=== PATIENT | male | born 1960 | race Caucasian/White ===

== ENCOUNTER → 2017-02-13 | Outpatient (CLI) | payer BC ==
[2017-02-13 09:42] LABS: CLARITY URINE CLEAR (CLEAR); COLOR URINE YELLOW (YELLOW); GLUCOSE URINE NEGATIVE (NEGATIVE); KETONES URINE NEGATIVE (NEGATIVE); LEUKOCYTE ESTERASE URINE NEGATIVE (NEGATIVE); NITRITE URINE NEGATIVE (NEGATIVE); OCCULT BLOOD URINE NEGATIVE (NEGATIVE); PROTEIN URINE NEGATIVE (NEGATIVE); SPECIFIC GRAVITY URINE 1.029 (1.005-1.030); UROBILINOGEN URINE 0.2 E.U./dL (0.2-1.0)
[2017-02-13 10:22] LABS: CARBON DIOXIDE 27 mEq/L (21-32); CHLORIDE 108 mEq/L (98-107); HDL CHOLESTEROL 31 mg/dL (40-59); LDL CHOLESTEROL 85 mg/dL (5-100)
[2017-02-16 13:12] LABS: *CREATININE RANDOM URINE 258.5 mg/dL (Not Estab.); MICROALBUMIN RANDOM URINE 23.8 ug/mL (Not Estab.)
== END | disposition home or self-care (01) ==
LOC: LAB 09:03
PROVIDERS: ATTEND Internal Medicine
DX: E11.9 Type 2 diabetes mellitus without complications (principal); E55.9 Vitamin D deficiency, unspecified; E78.00 Pure hypercholesterolemia, unspecified
CPT/HCPCS: 36415; 80053; 80061; 81003; 82043; 82306; 82570; 83036

== ENCOUNTER 2017-05-23 20:49 | Inpatient (IN) | payer BC ==
[~2017-05-23] VITALS: Ht 188 cm; Wt 94.8 kg
[2017-05-23] MEDS ORDERED: ONDANSETRON HCL 4MG/2ML VIAL IV STA (21:59)
[2017-05-23] MEDS ORDERED: SODIUM CHLORIDE 0.9% 1,000 ML IV ONE (21:59)
[2017-05-23] MEDS ORDERED: CEFTRIAXONE 1 G PREMIX 50 ML IV ONE (23:15)
[2017-05-23] MEDS ORDERED: AZITHROMYCIN 500 MG in DEXT 5% WATER 250 ML IV SCH (23:15)
[2017-05-23 23:23] LABS: BASOPHILS % 0.1 % (0.0-2.0); HEMATOCRIT. 48.8 % (42.0-52.0); HEMOGLOBIN. 16.4 g/dL (14.0-18.0); MEAN CORPUSCULAR HEMOGLOBIN 29.8 pg (28.0-32.0); MEAN CORPUSCULAR VOLUME 88.5 fL (80.0-94.0); MEAN PLATELET VOLUME 9.9 fl (7.4-10.4); MONOCYTES % 8.9 % (2.0-8.0); PLATELET 104 x1000/uL (130-400); RED BLOOD CELL COUNT 5.51 mill/uL (4.7-6.1); RED CELL DISTRIBUTION WIDTH 13.1 % (11.6-14.6)
[2017-05-23 23:26] LABS: PROTHROMBIN TIME 10.7 sec (9.4-11.6)
[2017-05-23 23:29] LABS: CLARITY URINE CLEAR (CLEAR); COLOR URINE DARK YELLOW (YELLOW); KETONES URINE 2+ (NEGATIVE); LEUKOCYTE ESTERASE URINE NEGATIVE (NEGATIVE); NITRITE URINE NEGATIVE (NEGATIVE); OCCULT BLOOD URINE NEGATIVE (NEGATIVE); PROTEIN URINE 2+ (NEGATIVE); SPECIFIC GRAVITY URINE 1.037 (1.005-1.030)
[2017-05-23] MEDS ORDERED: BENZONATATE 100MG CAPSULE PO ONE (23:30)
[2017-05-23 23:38] LABS: CARBON DIOXIDE 26 mEq/L (21-32); CHLORIDE 100 mEq/L (98-107); TROPONIN I < 0.02 ng/mL (0.00-0.04)
[2017-05-24] MEDS ORDERED: METF500T4 PO (01:20)
[2017-05-24] MEDS ORDERED: ATOR10TA69 PO (01:20)
[2017-05-24] MEDS ORDERED: GLIP5TAB12 PO (01:20)
[2017-05-24 01:30] VITALS: BP 115/58
[2017-05-24] MEDS ORDERED: DEXTROSE 50% WATER 50ML SYRINGE IV PRN (01:30)
[2017-05-24] MEDS ORDERED: TEMAZEPAM 15MG CAPSULE PO PRN (01:30)
[2017-05-24] MEDS ORDERED: ACETAMINOPHEN 325MG TABLET PO PRN (01:30)
[2017-05-24] MEDS ORDERED: ONDANSETRON HCL 4MG/2ML VIAL IV PRN (01:30)
[2017-05-24] MEDS ORDERED: CLONIDINE 0.1MG TABLET PO PRN (01:30)
[2017-05-24] MEDS ORDERED: HYDROCODONE/ACETAMINOPHEN 5/325MG TABLET PO PRN (01:30)
[2017-05-24] MEDS ORDERED: IPRATROPIUM/ALBUTEROL 0.5-3(2.5)MG/3ML NEB INH PRN (01:30)
[2017-05-24] MEDS ORDERED: DIPHENHYDRAMINE 50MG/ML VIAL IV PRN (01:30)
[2017-05-24] MEDS ORDERED: LOPERAMIDE HCL 2MG CAPSULE PO PRN (01:30)
[2017-05-24] MEDS: PROMETHAZINE/DEXTROMETHORPHAN 6.25-15MG/5ML BOTTLE 120ML PO PRN ×2 (02:32→11:48)
[2017-05-24] MEDS: SODIUM CHLORIDE 0.9% 1,000 ML IV SCH ×2 (02:34→11:33)
[2017-05-24 04:00] VITALS: BP 104/62
[2017-05-24] MEDS ORDERED: LEVOFLOXACIN 500MG PREMIX 100 ML IV SCH (04:00)
[2017-05-24] MEDS ORDERED: IPRATROPIUM/ALBUTEROL 0.5-3(2.5)MG/3ML NEB HHN SCH (06:00)
[2017-05-24] MEDS: BLOOD SUGAR DIAGNOSTIC STRIP TEST SCH ×3 (06:06→17:24)
[2017-05-24] MEDS: INSULIN LISPRO 100 UNITS/ML SUBCUT SCH ×3 (07:13→17:24)
[2017-05-24 08:00] VITALS: BP 113/66
[2017-05-24] MEDS: METFORMIN HCL 500MG TABLET PO SCH ×2 (08:51→17:30)
[2017-05-24] MEDS ORDERED: OSELTAMIVIR 75MG CAPSULE PO SCH (09:00)
[2017-05-24 12:00] VITALS: BP 111/65
[2017-05-24 16:00] VITALS: BP 103/67
[2017-05-24 16:25] VITALS: BP 103/67
[2017-05-24] MEDS ORDERED: ATORVASTATIN CALCIUM 10MG TABLET PO SCH (21:00)
== END 2017-05-24 18:30 | disposition home or self-care (01) | DRG 195 ==
LOC: ER 21:15 → EDBEDREQTM 23:51 → EDBEDREQ 23:51 → 7WST 23:51 → ENRESERV 23:52
PROVIDERS: ADMIT Internal Medicine; ATTEND Internal Medicine
DX: J18.9 Pneumonia, unspecified organism (principal); E11.9 Type 2 diabetes mellitus without complications; E78.00 Pure hypercholesterolemia, unspecified; F17.200 Nicotine dependence, unspecified, uncomplicated; Z83.3 Family history of diabetes mellitus; Z79.84 Long term (current) use of oral hypoglycemic drugs; Z79.899 Other long term (current) drug therapy
CPT/HCPCS: 36415; 80053; 81001; 82962; 83036; 83605; 83690; 83880; 84484; 85025; 85610; 87040; 87086; 87804; 93005; 96365; 96367; 96375; 99285; J0456; J0696; J1956; J2405; J7030; J7060; J7620

== ENCOUNTER → 2017-07-22 | Outpatient (CLI) | payer BC ==
[~2017-07-22] MED LIST: ATOR10TA69 PO; GLIP5TAB12 PO; METF500T4 PO
[2017-07-22 09:41] LABS: CHLORIDE 108 mEq/L (98-107)
[2017-07-22 09:45] LABS: HDL CHOLESTEROL 37 mg/dL (40-59); LDL CHOLESTEROL 96 mg/dL (5-100)
[2017-07-22 09:47] LABS: CLARITY URINE CLEAR (CLEAR); COLOR URINE YELLOW (YELLOW); KETONES URINE NEGATIVE (NEGATIVE); LEUKOCYTE ESTERASE URINE NEGATIVE (NEGATIVE); NITRITE URINE NEGATIVE (NEGATIVE); OCCULT BLOOD URINE NEGATIVE (NEGATIVE); PROTEIN URINE NEGATIVE (NEGATIVE); SPECIFIC GRAVITY URINE 1.026 (1.005-1.030); UROBILINOGEN URINE 0.2 E.U./dL (0.2-1.0)
[2017-07-26 19:07] LABS: *CREATININE RANDOM URINE 151.4 mg/dL (Not Estab.); MICROALBUMIN RANDOM URINE 9.3 ug/mL (Not Estab.)
== END | disposition home or self-care (01) ==
LOC: LAB 08:53
PROVIDERS: ATTEND Internal Medicine
DX: E11.9 Type 2 diabetes mellitus without complications (principal); E55.9 Vitamin D deficiency, unspecified; E78.5 Hyperlipidemia, unspecified
CPT/HCPCS: 36415; 80053; 80061; 81003; 82043; 82306; 82570

== ENCOUNTER → 2017-12-30 | Outpatient (CLI) | payer BC ==
[~2017-12-30] MED LIST changes: -METF500T4 PO; +METF500T6 PO
[2017-12-30 08:28] LABS: CHLORIDE 109 mEq/L (98-107)
[2017-12-30 08:36] LABS: LDL CHOLESTEROL 101 mg/dL (5-100)
[2017-12-30 08:38] LABS: HDL CHOLESTEROL 35 mg/dL (40-59)
== END | disposition home or self-care (01) ==
LOC: LAB 07:49
PROVIDERS: ATTEND Internal Medicine
DX: E11.9 Type 2 diabetes mellitus without complications (principal); E78.5 Hyperlipidemia, unspecified; Z79.899 Other long term (current) drug therapy
CPT/HCPCS: 36415; 80053; 80061; 83036

== ENCOUNTER → 2018-08-22 | Outpatient (CLI) | payer BC ==
[~2018-08-22] MED LIST changes: +METF-414 PO; -METF500T6 PO
[2018-08-22 09:54] LABS: CHLORIDE 107 mEq/L (98-107)
[2018-08-22 10:08] LABS: LDL CHOLESTEROL 90 mg/dL (5-100)
[2018-08-22 10:09] LABS: HDL CHOLESTEROL 40 mg/dL (40-59)
[2018-08-23 10:11] LABS: *CREATININE RANDOM URINE 165.3 mg/dL (Not Estab.); MICROALBUMIN RANDOM URINE 10.5 ug/mL (Not Estab.)
== END | disposition home or self-care (01) ==
LOC: LAB 09:07
PROVIDERS: ATTEND Internal Medicine
DX: Z00.01 Encounter for general adult medical examination with abnormal findings (principal); E11.9 Type 2 diabetes mellitus without complications; E78.00 Pure hypercholesterolemia, unspecified
CPT/HCPCS: 36415; 80061; 82043; 82570; 83036; 84153; G0103

== ENCOUNTER → 2019-03-11 | Outpatient (CLI) | payer BC ==
[2019-03-11 08:45] LABS: CLARITY URINE CLEAR (CLEAR); COLOR URINE YELLOW (YELLOW); KETONES URINE NEGATIVE (NEGATIVE); LEUKOCYTE ESTERASE URINE NEGATIVE (NEGATIVE); NITRITE URINE NEGATIVE (NEGATIVE); OCCULT BLOOD URINE NEGATIVE (NEGATIVE); PH URINE 5.5 (4.5-8.0); PROTEIN URINE NEGATIVE (NEGATIVE); SPECIFIC GRAVITY URINE 1.023 (1.005-1.030); UROBILINOGEN URINE 0.2 E.U./dL (0.2-1.0)
[2019-03-11 08:54] LABS: BASOPHILS % 0.7 % (0.0-2.0); EOSINOPHILS % 3.4 % (0.0-5.0); HEMATOCRIT. 44.3 % (42.0-52.0); HEMOGLOBIN. 14.8 g/dL (14.0-18.0); LYMPHOCYTES % 32.8 % (20.0-50.0); MEAN CORPUSCULAR HEMOGLOBIN 30.5 pg (28.0-32.0); MEAN CORPUSCULAR VOLUME 91.7 fL (80.0-94.0); MEAN PLATELET VOLUME 9.9 fl (7.4-10.4); MONOCYTES % 8.8 % (2.0-8.0); NEUTROPHILS % 54.3 % (40.0-76.0); PLATELET 171 x1000/uL (130-400); RED BLOOD CELL COUNT 4.84 mill/uL (4.7-6.1); RED CELL DISTRIBUTION WIDTH 13.3 % (11.6-14.6)
[2019-03-11 08:56] LABS: CHLORIDE 109 mEq/L (98-107)
[2019-03-11 09:03] LABS: LDL CHOLESTEROL 85 mg/dL (5-100)
[2019-03-11 09:04] LABS: HDL CHOLESTEROL 35 mg/dL (40-59)
[2019-03-12 09:07] LABS: *CREATININE RANDOM URINE 131.8 mg/dL (Not Estab.); MICROALBUMIN RANDOM URINE 10.5 ug/mL (Not Estab.)
== END | disposition home or self-care (01) ==
LOC: LAB 07:44
PROVIDERS: ATTEND Internal Medicine
DX: E11.9 Type 2 diabetes mellitus without complications (principal); E78.5 Hyperlipidemia, unspecified
CPT/HCPCS: 36415; 80061; 81003; 82043; 82570; 83036; 84443

== ENCOUNTER → 2019-11-27 | Outpatient (CLI) | payer BC ==
[2019-11-27 10:25] LABS: CHLORIDE 107 mEq/L (98-107)
[2019-11-27 10:26] LABS: CLARITY URINE CLEAR (CLEAR); COLOR URINE DARK YELLOW (YELLOW); KETONES URINE TRACE (NEGATIVE); LEUKOCYTE ESTERASE URINE NEGATIVE (NEGATIVE); NITRITE URINE NEGATIVE (NEGATIVE); OCCULT BLOOD URINE NEGATIVE (NEGATIVE); PROTEIN URINE NEGATIVE (NEGATIVE); SPECIFIC GRAVITY URINE 1.031 (1.005-1.030)
[2019-11-27 10:33] LABS: HDL CHOLESTEROL 36 mg/dL (40-59)
[2019-11-27 10:34] LABS: LDL CHOLESTEROL 116 mg/dL (5-100)
[2019-11-28 08:07] LABS: *CREATININE RANDOM URINE 212.7 mg/dL (Not Estab.); MICROALBUMIN RANDOM URINE 19.9 ug/mL (Not Estab.)
== END | disposition home or self-care (01) ==
LOC: LAB 09:48
PROVIDERS: ATTEND Internal Medicine
DX: E11.9 Type 2 diabetes mellitus without complications (principal); E78.5 Hyperlipidemia, unspecified
CPT/HCPCS: 36415; 80053; 80061; 81003; 82043; 82570; 83036

== ENCOUNTER → 2020-04-15 | Outpatient (CLI) | payer BC ==
[2020-04-15 14:34] LABS: BASOPHILS % 0.6 % (0.0-2.0); EOSINOPHILS % 2.5 % (0.0-5.0); HEMATOCRIT. 43.3 % (42.0-52.0); HEMOGLOBIN. 14.6 g/dL (14.0-18.0); LYMPHOCYTES % 28.1 % (20.0-50.0); MEAN CORPUSCULAR HEMOGLOBIN 30.4 pg (28.0-32.0); MEAN PLATELET VOLUME 9.3 fl (7.4-10.4); MONOCYTES % 6.5 % (2.0-8.0); NEUTROPHILS % 62.3 % (40.0-76.0); PLATELET 204 x1000/uL (130-400); RED BLOOD CELL COUNT 4.81 mill/uL (4.7-6.1); RED CELL DISTRIBUTION WIDTH 13.4 % (11.6-14.6)
[2020-04-15 14:46] LABS: CHLORIDE 111 mEq/L (98-107)
[2020-04-15 14:54] LABS: LDL CHOLESTEROL 92 mg/dL (5-100)
[2020-04-15 14:55] LABS: HDL CHOLESTEROL 41 mg/dL (40-59)
[2020-04-15 19:31] LABS: CLARITY URINE CLEAR (CLEAR); COLOR URINE YELLOW (YELLOW); KETONES URINE NEGATIVE (NEGATIVE); LEUKOCYTE ESTERASE URINE NEGATIVE (NEGATIVE); NITRITE URINE NEGATIVE (NEGATIVE); OCCULT BLOOD URINE NEGATIVE (NEGATIVE); PROTEIN URINE NEGATIVE (NEGATIVE); SPECIFIC GRAVITY URINE 1.013 (1.005-1.030); UROBILINOGEN URINE 0.2 E.U./dL (0.2-1.0)
== END | disposition home or self-care (01) ==
LOC: MRI 13:36
PROVIDERS: ATTEND Internal Medicine
DX: M43.16 Spondylolisthesis, lumbar region (principal); M47.26 Other spondylosis with radiculopathy, lumbar region; M48.061 Spinal stenosis, lumbar region without neurogenic claudication; Z00.00 Encounter for general adult medical examination without abnormal findings
CPT/HCPCS: 36415; 72148; 80053; 80061; 81003; 83036; 84443; 85025

== ENCOUNTER → 2020-09-02 | Outpatient (CLI) | payer BC ==
[2020-09-02 09:35] LABS: BASOPHILS % 0.6 % (0.0-2.0); EOSINOPHILS % 2.5 % (0.0-5.0); HEMATOCRIT. 47.7 % (42.0-52.0); HEMOGLOBIN. 15.9 g/dL (14.0-18.0); MEAN CORPUSCULAR HEMOGLOBIN 29.9 pg (28.0-32.0); MEAN CORPUSCULAR VOLUME 89.6 fL (80.0-94.0); MEAN PLATELET VOLUME 9.2 fl (7.4-10.4); MONOCYTES % 6.1 % (2.0-8.0); NEUTROPHILS % 63.8 % (40.0-76.0); PLATELET 199 x1000/uL (130-400); RED BLOOD CELL COUNT 5.33 mill/uL (4.7-6.1); RED CELL DISTRIBUTION WIDTH 13.1 % (11.6-14.6)
[2020-09-02 09:42] LABS: CHLORIDE 108 mEq/L (98-107)
[2020-09-02 09:50] LABS: LDL CHOLESTEROL 119 mg/dL (5-100)
[2020-09-02 09:51] LABS: HDL CHOLESTEROL 43 mg/dL (40-59)
== END | disposition home or self-care (01) ==
LOC: LAB 09:12
PROVIDERS: ATTEND Internal Medicine
DX: R63.4 Abnormal weight loss (principal); E11.9 Type 2 diabetes mellitus without complications; E78.5 Hyperlipidemia, unspecified
CPT/HCPCS: 36415; 71046; 80053; 80061; 83036; 84153; 84443; 85025; G0103

== ENCOUNTER → 2021-03-29 | Outpatient (CLI) | payer BC ==
[2021-03-29 10:51] LABS: BASOPHILS % 0.8 % (0.0-2.0); EOSINOPHILS % 3.8 % (0.0-5.0); HEMATOCRIT. 46.5 % (42.0-52.0); HEMOGLOBIN. 15.4 g/dL (14.0-18.0); LYMPHOCYTES % 30.8 % (20.0-50.0); MEAN CORPUSCULAR HEMOGLOBIN 29.8 pg (28.0-32.0); MEAN PLATELET VOLUME 9.9 fl (7.4-10.4); MONOCYTES % 7.6 % (2.0-8.0); PLATELET 187 x1000/uL (130-400); RED BLOOD CELL COUNT 5.16 mill/uL (4.7-6.1); RED CELL DISTRIBUTION WIDTH 13.3 % (11.6-14.6)
[2021-03-29 10:53] LABS: CLARITY URINE CLEAR (CLEAR); COLOR URINE YELLOW (YELLOW); KETONES URINE NEGATIVE (NEGATIVE); LEUKOCYTE ESTERASE URINE NEGATIVE (NEGATIVE); NITRITE URINE NEGATIVE (NEGATIVE); OCCULT BLOOD URINE NEGATIVE (NEGATIVE); PROTEIN URINE NEGATIVE (NEGATIVE); SPECIFIC GRAVITY URINE 1.026 (1.005-1.030); UROBILINOGEN URINE 0.2 E.U./dL (0.2-1.0)
[2021-03-29 11:09] LABS: CHLORIDE 109 mEq/L (98-107)
[2021-03-29 11:17] LABS: LDL CHOLESTEROL 139 mg/dL (5-100)
[2021-03-29 11:18] LABS: HDL CHOLESTEROL 42 mg/dL (40-59)
[2021-03-30 13:06] LABS: *CREATININE RANDOM URINE 103.4 mg/dL (Not Estab.); MICROALBUMIN RANDOM URINE 7.5 ug/mL (Not Estab.)
== END | disposition home or self-care (01) ==
LOC: LAB CL OP 09:46
PROVIDERS: ATTEND Internal Medicine
DX: E11.9 Type 2 diabetes mellitus without complications (principal); E78.5 Hyperlipidemia, unspecified
CPT/HCPCS: 36415; 80053; 80061; 81003; 82043; 82570; 83036; 85025

== ENCOUNTER → 2021-07-26 | Outpatient (CLI) | payer BC ==
[2021-07-26 09:05] LABS: CHLORIDE 108 mEq/L (98-107)
[2021-07-26 09:12] LABS: LDL CHOLESTEROL 108 mg/dL (5-100)
[2021-07-26 09:13] LABS: HDL CHOLESTEROL 38 mg/dL (40-59)
== END | disposition home or self-care (01) ==
LOC: LAB 08:25
PROVIDERS: ATTEND Internal Medicine
DX: E11.9 Type 2 diabetes mellitus without complications (principal); E78.5 Hyperlipidemia, unspecified
CPT/HCPCS: 36415; 80053; 80061; 83036

== ENCOUNTER → 2021-12-15 | Outpatient (CLI) | payer BC ==
[2021-12-15 08:23] LABS: CHLORIDE 100 mEq/L (98-107)
[2021-12-15 08:33] LABS: HDL CHOLESTEROL 35 mg/dL (40-59); LDL CHOLESTEROL 133 mg/dL (5-100)
== END | disposition home or self-care (01) ==
LOC: LAB 07:50
PROVIDERS: ATTEND Internal Medicine
DX: E11.9 Type 2 diabetes mellitus without complications (principal); E78.5 Hyperlipidemia, unspecified
CPT/HCPCS: 36415; 80053; 80061; 83036

== ENCOUNTER → 2022-03-30 | Outpatient (CLI) | payer BC ==
[2022-03-30 09:03] LABS: CHLORIDE 106 mEq/L (98-107)
[2022-03-30 09:27] LABS: CLARITY URINE CLEAR (CLEAR); COLOR URINE YELLOW (YELLOW); KETONES URINE TRACE (NEGATIVE); LEUKOCYTE ESTERASE URINE NEGATIVE (NEGATIVE); NITRITE URINE NEGATIVE (NEGATIVE); OCCULT BLOOD URINE NEGATIVE (NEGATIVE); PH URINE 5.5 (4.5-8.0); PROTEIN URINE NEGATIVE (NEGATIVE); SPECIFIC GRAVITY URINE 1.022 (1.005-1.030); UROBILINOGEN URINE 0.2 E.U./dL (0.2-1.0)
[2022-03-30 09:35] LABS: HDL CHOLESTEROL 40 mg/dL (40-59); LDL CHOLESTEROL 121 mg/dL (5-100)
[2022-03-31 08:11] LABS: *CREATININE RANDOM URINE 179.8 mg/dL (Not Estab.); MICROALBUMIN RANDOM URINE 18.1 ug/mL (Not Estab.)
== END | disposition home or self-care (01) ==
LOC: LAB 08:10
PROVIDERS: ATTEND Internal Medicine
DX: E11.9 Type 2 diabetes mellitus without complications (principal); E78.5 Hyperlipidemia, unspecified
CPT/HCPCS: 36415; 80053; 80061; 81003; 82043; 82570; 83036

== ENCOUNTER → 2022-08-17 | Outpatient (CLI) | payer BC ==
[2022-08-17 08:53] LABS: BASOPHILS % 0.7 % (0.0-2.0); EOSINOPHILS % 2.7 % (0.0-5.0); HEMATOCRIT. 48.2 % (42.0-52.0); HEMOGLOBIN. 15.9 g/dL (14.0-18.0); LYMPHOCYTES % 24.8 % (20.0-50.0); MEAN CORPUSCULAR VOLUME 91.1 fL (80.0-94.0); MEAN PLATELET VOLUME 9.6 fl (7.4-10.4); MONOCYTES % 6.3 % (2.0-8.0); NEUTROPHILS % 65.5 % (40.0-76.0); PLATELET 228 x1000/uL (130-400); RED BLOOD CELL COUNT 5.29 mill/uL (4.7-6.1); RED CELL DISTRIBUTION WIDTH 13.6 % (11.6-14.6)
[2022-08-17 09:39] LABS: CHLORIDE 109 mEq/L (98-107)
[2022-08-17 09:45] LABS: HDL CHOLESTEROL 36 mg/dL (40-59); LDL CHOLESTEROL 87 mg/dL (5-100)
[2022-08-18 14:09] LABS: *CREATININE RANDOM URINE 145.5 mg/dL (Not Estab.); MICROALBUMIN RANDOM URINE 13.7 ug/mL (Not Estab.)
== END | disposition home or self-care (01) ==
LOC: LAB 08:20
PROVIDERS: ATTEND Internal Medicine
DX: E11.9 Type 2 diabetes mellitus without complications (principal); E78.5 Hyperlipidemia, unspecified
CPT/HCPCS: 36415; 80053; 80061; 82043; 82570; 83036; 85025

== ENCOUNTER → 2022-11-23 | Outpatient (CLI) | payer BC ==
[2022-11-23 09:03] LABS: CHLORIDE 110 mEq/L (98-107)
[2022-11-23 09:11] LABS: HDL CHOLESTEROL 36 mg/dL (40-59); LDL CHOLESTEROL 92 mg/dL (5-100)
== END | disposition home or self-care (01) ==
LOC: LAB 08:14
PROVIDERS: ATTEND Internal Medicine
DX: E11.9 Type 2 diabetes mellitus without complications (principal); E78.5 Hyperlipidemia, unspecified
CPT/HCPCS: 36415; 80053; 80061; 83036

== ENCOUNTER → 2023-05-31 | Outpatient (CLI) | payer BC ==
[~2023-05-31] MED LIST changes: -GLIP5TAB12 PO; +GLIP5TAB22 PO
[2023-05-31 09:35] LABS: ALANINE AMINOTRANSFERASE 24 IU/L (10-49); ALBUMIN 4.3 g/dL (3.2-4.8); ASPARTATE AMINOTRANSFERASE 18 IU/L (<34); BILIRUBIN TOTAL 0.4 mg/dL (0.1-1.0); CALCIUM 9.3 mg/dL (8.7-10.4); CARBON DIOXIDE 25 mEq/L (21-32); CHLORIDE 107 mEq/L (98-107); CHOLESTEROL 115 mg/dL (<200); CREATININE 0.7 mg/dL (0.6-1.3); GLUCOSE 156 mg/dL (70-105); HDL CHOLESTEROL 37 mg/dL (>55); LDL CHOLESTEROL 60 mg/dL (5-100); POTASSIUM 4.7 mEq/L (3.5-5.1); PROTEIN TOTAL 7.2 g/dL (6.0-8.3); SODIUM 138 mEq/L (136-145); TRIGLYCERIDE 55 mg/dL (0-150); UREA NITROGEN BLOOD 13 mg/dL (9-23)
[2023-05-31 09:47] LABS: BASOPHILS % 0.4 % (0.0-2.0); HEMATOCRIT. 46.9 % (42.0-52.0); HEMOGLOBIN. 15.7 g/dL (14.0-18.0); LYMPHOCYTES % 26.5 % (20.0-50.0); MEAN CORPUSCULAR HEMOGLOBIN 30.4 pg (28.0-32.0); MEAN CORPUSCULAR HGB CONC 33.6 g/dL (31.0-37.0); MEAN CORPUSCULAR VOLUME 90.4 fL (80.0-94.0); MEAN PLATELET VOLUME 9.4 fl (7.4-10.4); MONOCYTES % 8.4 % (2.0-8.0); NEUTROPHILS % 62.7 % (40.0-76.0); PLATELET 203 x1000/uL (130-400); RED BLOOD CELL COUNT 5.18 mill/uL (4.7-6.1); RED CELL DISTRIBUTION WIDTH 13.3 % (11.6-14.6); WHITE BLOOD COUNT 9.4 x1000/uL (4.5-11.0)
[2023-05-31 10:28] LABS: CLARITY URINE CLEAR (CLEAR); COLOR URINE YELLOW (YELLOW); GLUCOSE URINE NEGATIVE (NEGATIVE); KETONES URINE NEGATIVE (NEGATIVE); LEUKOCYTE ESTERASE URINE NEGATIVE (NEGATIVE); NITRITE URINE NEGATIVE (NEGATIVE); OCCULT BLOOD URINE NEGATIVE (NEGATIVE); PH URINE 5.5 (4.5-8.0); PROTEIN URINE NEGATIVE (NEGATIVE); UROBILINOGEN URINE 0.2 E.U./dL (0.2-1.0)
[2023-06-01 13:07] LABS: *CREATININE RANDOM URINE 109.4 mg/dL (Not Estab.); MICROALBUMIN RANDOM URINE 18.4 ug/mL (Not Estab.)
== END | disposition home or self-care (01) ==
LOC: LAB 08:49
PROVIDERS: ATTEND Internal Medicine
DX: Z12.5 Encounter for screening for malignant neoplasm of prostate (principal); E11.9 Type 2 diabetes mellitus without complications; E78.5 Hyperlipidemia, unspecified
CPT/HCPCS: 36415; 80053; 80061; 81003; 82043; 82570; 83036; 84153; 85025; G0103

== ENCOUNTER → 2024-03-27 | Outpatient (CLI) | payer BC ==
[2024-03-27 09:04] LABS: BASOPHILS % 0.6 % (0.0-2.0); DIFFERENTIAL COMMENT 0; EOSINOPHILS % 1.4 % (0.0-5.0); HEMATOCRIT. 48.5 % (42.0-52.0); HEMOGLOBIN. 15.8 g/dL (14.0-18.0); LYMPHOCYTES % 23.3 % (20.0-50.0); MEAN CORPUSCULAR HEMOGLOBIN 29.9 pg (28.0-32.0); MEAN CORPUSCULAR HGB CONC 32.4 g/dL (31.0-37.0); MEAN PLATELET VOLUME 9.7 fl (7.4-10.4); MONOCYTES % 6.9 % (2.0-8.0); NEUTROPHILS % 67.8 % (40.0-76.0); PLATELET 231 x1000/uL (130-400); RED BLOOD CELL COUNT 5.27 mill/uL (4.7-6.1); RED CELL DISTRIBUTION WIDTH 13.5 % (11.6-14.6); WHITE BLOOD COUNT 13.2 x1000/uL (4.5-11.0)
[2024-03-27 09:20] LABS: CHLORIDE 108 mEq/L (98-107); POTASSIUM 5.2 mEq/L (3.5-5.1); SODIUM 141 mEq/L (136-145)
[2024-03-27 09:21] LABS: CALCIUM 9.8 mg/dL (8.7-10.4); CARBON DIOXIDE 29 mEq/L (21-32)
[2024-03-27 09:26] LABS: CREATININE 0.9 mg/dL (0.6-1.3); GLUCOSE 138 mg/dL (70-105); TRIGLYCERIDE 85 mg/dL (0-150); UREA NITROGEN BLOOD 8 mg/dL (9-23)
[2024-03-27 09:27] LABS: LDL CHOLESTEROL 138 mg/dL (5-100)
[2024-03-27 09:28] LABS: ALANINE AMINOTRANSFERASE 14 IU/L (10-49); ALBUMIN 4.6 g/dL (3.2-4.8); ASPARTATE AMINOTRANSFERASE 15 IU/L (<34); BILIRUBIN TOTAL 0.5 mg/dL (0.1-1.0); CHOLESTEROL 179 mg/dL (<200); HDL CHOLESTEROL 36 mg/dL (>55); PROTEIN TOTAL 7.3 g/dL (6.0-8.3)
[2024-03-28 13:10] LABS: *CREATININE RANDOM URINE 103.5 mg/dL (Not Estab.); MICROALBUMIN RANDOM URINE 12.8 ug/mL (Not Estab.)
== END | disposition home or self-care (01) ==
LOC: RAD 08:34
PROVIDERS: ATTEND Internal Medicine
DX: E11.9 Type 2 diabetes mellitus without complications (principal); M25.552 Pain in left hip; E78.5 Hyperlipidemia, unspecified
CPT/HCPCS: 36415; 73502; 80053; 80061; 82043; 82570; 83036; 85025

== ENCOUNTER → 2024-07-24 | Outpatient (CLI) | payer BC ==
[2024-07-24 09:17] LABS: BASOPHILS % 0.6 % (0.0-2.0); EOSINOPHILS % 2.4 % (0.0-5.0); HEMATOCRIT. 45.8 % (42.0-52.0); HEMOGLOBIN. 14.8 g/dL (14.0-18.0); LYMPHOCYTES % 21.9 % (20.0-50.0); MEAN CORPUSCULAR HEMOGLOBIN 29.2 pg (28.0-32.0); MEAN CORPUSCULAR HGB CONC 32.3 g/dL (31.0-37.0); MEAN CORPUSCULAR VOLUME 90.3 fL (80.0-94.0); MEAN PLATELET VOLUME 9.5 fl (7.4-10.4); MONOCYTES % 7.3 % (2.0-8.0); NEUTROPHILS % 67.8 % (40.0-76.0); PLATELET 234 x1000/uL (130-400); RED BLOOD CELL COUNT 5.07 mill/uL (4.7-6.1); RED CELL DISTRIBUTION WIDTH 13.4 % (11.6-14.6); WHITE BLOOD COUNT 10.8 x1000/uL (4.5-11.0)
[2024-07-24 09:21] LABS: CHLORIDE 106 mEq/L (98-107); POTASSIUM 4.9 mEq/L (3.5-5.1); SODIUM 140 mEq/L (136-145)
[2024-07-24 09:22] LABS: CALCIUM 9.4 mg/dL (8.7-10.4); CARBON DIOXIDE 27 mEq/L (21-32)
[2024-07-24 09:27] LABS: CREATININE 0.7 mg/dL (0.6-1.3); GLUCOSE 151 mg/dL (70-105); TRIGLYCERIDE 74 mg/dL (0-150); UREA NITROGEN BLOOD 13 mg/dL (9-23)
[2024-07-24 09:28] LABS: LDL CHOLESTEROL 85 mg/dL (5-100)
[2024-07-24 09:29] LABS: ALANINE AMINOTRANSFERASE 17 IU/L (10-49); ALBUMIN 4.2 g/dL (3.2-4.8); ASPARTATE AMINOTRANSFERASE 15 IU/L (<34); BILIRUBIN TOTAL 0.4 mg/dL (0.1-1.0); CHOLESTEROL 137 mg/dL (<200); HDL CHOLESTEROL 33 mg/dL (>55); PROTEIN TOTAL 6.9 g/dL (6.0-8.3)
== END | disposition home or self-care (01) ==
LOC: LAB 08:46
PROVIDERS: ATTEND Internal Medicine
DX: E11.9 Type 2 diabetes mellitus without complications (principal); E78.5 Hyperlipidemia, unspecified
CPT/HCPCS: 36415; 80053; 80061; 83036; 85025

== ENCOUNTER → 2024-11-13 | Outpatient (CLI) | payer BC ==
[2024-11-13 09:24] LABS: BASOPHILS % 0.5 % (0.0-2.0); DIFFERENTIAL COMMENT 0; EOSINOPHILS % 4.2 % (0.0-5.0); HEMATOCRIT. 48.7 % (42.0-52.0); HEMOGLOBIN. 16.1 g/dL (14.0-18.0); LYMPHOCYTES % 23.6 % (20.0-50.0); MEAN CORPUSCULAR HEMOGLOBIN 29.9 pg (28.0-32.0); MEAN CORPUSCULAR HGB CONC 33.1 g/dL (31.0-37.0); MEAN CORPUSCULAR VOLUME 90.4 fL (80.0-94.0); MEAN PLATELET VOLUME 8.9 fl (7.4-10.4); MONOCYTES % 7.2 % (2.0-8.0); NEUTROPHILS % 64.5 % (40.0-76.0); PLATELET 236 x1000/uL (130-400); RED BLOOD CELL COUNT 5.39 mill/uL (4.7-6.1); RED CELL DISTRIBUTION WIDTH 13.4 % (11.6-14.6); WHITE BLOOD COUNT 8.6 x1000/uL (4.5-11.0)
[2024-11-13 09:26] LABS: CLARITY URINE CLEAR (CLEAR); COLOR URINE YELLOW (YELLOW); GLUCOSE URINE TRACE (NEGATIVE); KETONES URINE TRACE (NEGATIVE); LEUKOCYTE ESTERASE URINE NEGATIVE (NEGATIVE); NITRITE URINE NEGATIVE (NEGATIVE); OCCULT BLOOD URINE NEGATIVE (NEGATIVE); PH URINE 5.5 (4.5-8.0); PROTEIN URINE TRACE (NEGATIVE); SPECIFIC GRAVITY URINE 1.024 (1.005-1.030)
[2024-11-13 09:36] LABS: CHLORIDE 106 mEq/L (98-107); SODIUM 141 mEq/L (136-145)
[2024-11-13 09:37] LABS: CALCIUM 9.8 mg/dL (8.7-10.4); CARBON DIOXIDE 29 mEq/L (21-32)
[2024-11-13 09:42] LABS: CREATININE 0.8 mg/dL (0.6-1.3); GLUCOSE 170 mg/dL (70-105); UREA NITROGEN BLOOD 10 mg/dL (9-23)
[2024-11-13 09:44] LABS: ALANINE AMINOTRANSFERASE 16 IU/L (10-49); ALBUMIN 4.7 g/dL (3.2-4.8); ASPARTATE AMINOTRANSFERASE 12 IU/L (<34); BILIRUBIN TOTAL 0.5 mg/dL (0.1-1.0); HDL CHOLESTEROL 38 mg/dL (>55); PROTEIN TOTAL 7.1 g/dL (6.0-8.3)
[2024-11-13 09:53] LABS: SQUAMOUS EPITHELIAL CELL URINE FEW /lpf (RARE/1+)
[2024-11-13 09:54] LABS: MUCUS URINE 1+ /lpf (NONE/TRACE); RBC URINE 0-2 /hpf (0-2); WBC URINE 0-2 /hpf (0-2)
[2024-11-13 09:54] LABS: TRIGLYCERIDE 69 mg/dL (0-150)
[2024-11-13 09:55] LABS: LDL CHOLESTEROL 89 mg/dL (5-100)
[2024-11-13 09:56] LABS: BACTERIA URINE NONE SEEN
[2024-11-13 09:56] LABS: CHOLESTEROL 135 mg/dL (<200)
[2024-11-14 08:09] LABS: *CREATININE RANDOM URINE 222.4 mg/dL (Not Estab.); MICROALBUMIN RANDOM URINE 41.3 ug/mL (Not Estab.)
== END | disposition home or self-care (01) ==
LOC: LAB 08:37
PROVIDERS: ATTEND Internal Medicine
DX: E11.9 Type 2 diabetes mellitus without complications (principal); E78.5 Hyperlipidemia, unspecified; Z12.5 Encounter for screening for malignant neoplasm of prostate; Z00.00 Encounter for general adult medical examination without abnormal findings; Z79.899 Other long term (current) drug therapy
CPT/HCPCS: 36415; 80053; 80061; 81003; 82043; 82570; 83036; 84153; 85025

== ENCOUNTER → 2025-02-26 | Outpatient (CLI) | payer BC ==
[2025-02-26 08:46] LABS: BASOPHILS % 0.6 % (0.0-2.0); EOSINOPHILS % 3.3 % (0.0-5.0); HEMATOCRIT. 47.8 % (42.0-52.0); HEMOGLOBIN. 15.8 g/dL (14.0-18.0); LYMPHOCYTES % 25.2 % (20.0-50.0); MEAN PLATELET VOLUME 9.3 fl (7.4-10.4); MONOCYTES % 7.6 % (2.0-8.0); NEUTROPHILS % 63.3 % (40.0-76.0); PLATELET 251 x1000/uL (130-400); RED BLOOD CELL COUNT 5.21 mill/uL (4.7-6.1); RED CELL DISTRIBUTION WIDTH 13.9 % (11.6-14.6)
[2025-02-26 08:58] LABS: CREATININE 0.8 mg/dL (0.6-1.3)
[2025-02-26 08:59] LABS: LDL CHOLESTEROL 100 mg/dL (5-100); TRIGLYCERIDE 93 mg/dL (0-150); UREA NITROGEN BLOOD 8 mg/dL (9-23)
[2025-02-26 09:00] LABS: ASPARTATE AMINOTRANSFERASE 12 IU/L (<34)
[2025-02-26 09:01] LABS: BILIRUBIN TOTAL 0.4 mg/dL (0.1-1.0); PROTEIN TOTAL 6.9 g/dL (6.0-8.3)
== END | disposition home or self-care (01) ==
LOC: LAB 08:03
PROVIDERS: ATTEND Internal Medicine
DX: E11.9 Type 2 diabetes mellitus without complications (principal); E78.5 Hyperlipidemia, unspecified
CPT/HCPCS: 36415; 80053; 80061; 83036; 85025